=== PATIENT | male | born 1990 | race Hispanic/Latino ===

== ENCOUNTER 2018-03-11 13:05 | Observation (INO) ==
[2018-03-11] MEDS ORDERED: DICYCLOMINE HCL 10 MG/ML AMPUL IM ONE (14:13)
[2018-03-11 14:26] LABS: Hematocrit 48.4 % (42.0-52.0); Hemoglobin 16.7 gm/dL (13.5-18.0); Mean Cell Volume 87.7 fl (78-100); Mean Corpuscular Hemoglobin 30.3 pg (27-31); Mean Corpuscular Hgb Conc 34.5 g/dl (32-36); Mean Platelet Volume 10.5 fl (8-11.3); Neutrophil # 9.3 K/mm3 (1.3-6.0); Neutrophil % 80.3 % (42-75.0); Platelet Count 262 K/mm3 (150-450); Red Blood Count 5.52 M/mm3 (4.7-6.0); Red Cell Distribution Width 12.2 % (11.5-14.0); White Blood Count 11.6 K/mm3 (4.0-10.5)
[2018-03-11 14:40] LABS: ALT 50 U/L (19-67); AST 30 U/L (0-48); Albumin * 4.3 gm/dl (3.4-5.0); Alkaline Phosphatase * 77 U/L (50-170); BUN/Creatinine Ratio 13.2 (9.0-21.6); Bilirubin, Total 0.3 mg/dL (0.0-1.1); Blood Urea Nitrogen 12 mg/dL (6-23); Ca. Corrected For Albumin 9.1 mg/dL (8.4-10.2); Calcium * 9.7 mg/dL (7.9-10.9); Carbon Dioxide 28.1 mmol/L (24-32.6); Chloride 101 mmol/L (97-106); Glucose * 115 mg/dL (70-110); Lipase 654 U/L (73-393); Magnesium 1.9 mg/dL (1.2-2.8); Potassium 4.1 mmol/L (3.4-4.6); Sodium 140 mmol/L (132-142); Total Protein 8.7 gm/dL (6.2-8.2)
[2018-03-11] MEDS ORDERED: NORMAL SALINE 1,000 ML IV ONE (15:17)
[2018-03-11] MEDS ORDERED: MORPHINE SULFATE 4 MG/ML SYRG IV ONE ×2 (15:17→17:53)
[2018-03-11] MEDS ORDERED: ONDANSETRON HCL/PF 2 MG/ML VIAL IV ONE (15:17)
[2018-03-11] MEDS ORDERED: DIATRIZOATE MEGLUMINE, SODIUM 30 ML BTL PO ONE (15:18)
--- NOTE | 2018-03-11 17:49 | ERNOTE ---
Abdominal HPI - General Chief Complaint: Abdominal Pain Time Seen by Provider: 03/11/18 13:54 Source: patient, interpreter deaf Exam Limitations: no limitations - Immun/Allergies/Home Medications Allergies/Adverse Reactions: Allergies No Known Allergies Allergy (Unverified 03/11/18 13:45) Home Medications: HOME MEDICATIONS HYDROcodone/ACETAMINOPHEN [[place] 5-325] 1 ea PO Q4H #20 tab 03/11/18 [Last Taken Unknown] - History of Present Illness Narrative: Patient presents with epigastric abdominal pain. Patient appears to be at least moderate in severity and there has been some nausea with vomiting. Timing: constant Quality: moderate Activities at Onset: none Associated Symptoms: Present: nausea, vomiting Prior Abdominal Problems: Present: none Review of Systems - Review of Systems Constitutional: Present: See HPI EYE: Present: no symptoms reported ENT: Present: no symptoms reported Respiratory: Present: no symptoms reported Cardiology: Present: no symptoms reported Gastrointestinal/Abdominal: Present: See HPI, nausea, vomiting, abdominal pain Genitourinary: Present: no symptoms reported Musculoskeletal: Present: no symptoms reported Skin: Present: no symptoms reported Neurological: Present: no symptoms reported Endocrine: Present: no symptoms reported Hematologic/Lymphatic: Present: no symptoms reported Psych: Present: no symptoms reported Medical History (Last Updated 03/11/18 @ 13:45 by Shay Baker RN) No pertinent past medical history Surgical History: Surgical History (Last Updated 03/11/18 @ 13:45 by Sahy Baker RN) No pertinent past surgical history Social History: Preferred Language Hungarian Smoking Status Never smoker Alcohol Use occasionally Drug Use none No Social History Section defined Physical Exam - Physical Exam General Appearance: Present: wd/wn, alert, moderate distress Head Exam: Present: normal inspection, no evidence of injury Eye Exam: Normal inspection: bilateral, PERRL: bilateral Ears, Nose, Throat: Present: normal ENT inspection, H, normal pharynx Neck: Present: normal inspection, nontender Respiratory: Present: no respiratory distress, normal breath sounds, no accessory muscle use, chest nontender, lungs clear Cardiovascular/Chest: Present: regular rate, rhythm, no murmur, normal peripheral pulses Gastrointestinal/Abdominal: Present: normal bowel sounds, nondistended, soft, no organomegaly, tenderness Rectal Exam: Present: deferred Back Exam: Present: normal inspection, normal range of motion Extremity Exam: Present: normal inspection, non-tender, no edema, normal range of motion Neurological Exam: Present: alert, oriented, normal mood/affect Skin Exam: Present: normal color, warm/dry Lymphatic Exam: Present: no adenopathy Progress - Results and Orders Patient's Lab Results:: I have reviewed the patient's lab results. - Vital Signs Patient's Vital Signs:: I have reviewed the patient's vital signs. Vital Signs: Vital Signs 03/11/18 13:40 03/11/18 15:14 Temperature 36.8 C Pulse Rate 91 87 Respiratory Rate 14 16 Blood Pressure 144/76 H 145/80 H O2 Sat by Pulse Oximetry 97 99 - CT/Ultrasound CT/Ultrasound Narrative: CT the abdomen pelvis reviewed by me - Progress/Reassessment Chief Complaint: Abdominal Pain Progress:: Improved Plan - Plan Plan: By utilizing the global interpreter deaf I was able to ascertain whether the patient felt good enough to go home if we could send him home with pain medicine, and he stated yes. He was informed that he needed to refrain from any alcohol consumption, he needed to drink only clear liquids for the next 24 hours and preferably take at least several days off from work. He will come back if his pain does not resolve as anticipated. Departure Clinical Impression: Pancreatitis, acute Qualifiers: Pancreatitis type: other Acute pancreatitis complication: no infection or necrosis Qualified Code(s): K85.80 - Other acute pancreatitis without necrosis or infection - Departure Disposition: Home self-care Condition: Good Instructions: Acute Pancreatitis, [id number] Print Language: Hungarian Prescriptions: HYDROcodone/ACETAMINOPHEN [[place] 5-325] 1 ea PO Q4H #20 tab
[2018-03-11] MEDS ORDERED: HYDROmorphone HCL 1 MG/ML DISP.SYRIN IV PRN (20:39)
[2018-03-11] MEDS ORDERED: ACETAMINOPHEN 325 MG TABLET PO PRN (20:40)
--- NOTE | 2018-03-11 20:41 | HP ---
Chief Complaint - Chief Complaint Date of Service: 03/11/18 Time of Service: 20:26 Chief Complaint: abdominal pain History of Present Illness: Simeon Zuniga, is a 27-year-old male of descent, who was admitted on 03/11/2018 because of abdominal pain. His pain started early this morning, epigastric to right upper quadrant in location, 7-8/10, nonradiating, associated with nausea and vomiting. He said last night he was in a constitution party and drank 7 bottles of beer and ate barbecued chicken and steak. In the emergency room the patient had an elevated white blood cell count of 12 and lipase of 654. The abdominal CT scan showed acute pancreatitis. The patient was admitted for observation for pain control and IV fluids. The patient is not a good historian as he does not speak fluent [place]ian. Medical History (Last Reviewed 03/11/18 @ 22:02 by Margot Esposito RN) No pertinent past medical history Surgical History: Surgical History (Last Reviewed 03/11/18 @ 22:02 by Margot Esposito RN) No pertinent past surgical history Social History: Preferred Language Serbian Smoking Status Never smoker Alcohol Use occasionally Drug Use none No Social History Section defined Review Of Systems (GEN) - Review of Systems Generalized/Overall Review: Absent: Weakness, Chills, Fever EENTM: Absent: Blurred Vision Respiratory: Absent: Cough, Shortness of Breath Cardiac: Absent: Chest Pain, Edema, Palpitations Abdominal: Present: Nausea, Vomiting, Abdominal Pain, Diarrhea - x 1 Genitourinary: Absent: Urgency, Frequency Musculoskeletal: Absent: Joint Pain Allergies/Adverse Reactions: Allergies Allergy/AdvReac Type Severity Reaction Status Date / Time No Known Allergies Allergy Unverified 03/11/18 13:45 Home Medications: HOME MEDICATIONS HYDROcodone/ACETAMINOPHEN [[place] 5-325] 1 ea PO Q4H #20 tab 03/11/18 [Last Taken Unknown] Exam - Exam Vital Signs: Vital Signs - Last Taken Temp 37 C 03/11/18 18:06 Pulse 85 03/11/18 19:33 Resp 18 03/11/18 19:33 BP 122/85 03/11/18 19:33 Pulse Ox 99 03/11/18 19:33 Constitutional: Present: Alert, Oriented x3, Cooperative ENT Exam: Present: hearing grossly normal Eye Exam: bilateral eye: normal inspection, PERRL, EOMI Neck: Present: supple Respiratory: Present: normal breath sounds, No rales, No wheezing Cardiovascular/Chest: Present: regular rate, rhythm, no JVD, no murmur Abdomen: Present: nondistended, no hepatospenomegaly, tender - RUQ, firm, hypoactive Extremity: Present: no pedal edema, no calf tenderness Diagnostic Studies: Abnormal Lab Results 03/11/18 03/11/18 Range/Units 14:20 14:20 WBC 11.6 H (4.0-10.5) K/mm3 Immature Gran % (Auto) 0.60 H (0.001-0.429) % Immature Gran # (Auto) 0.07 H (0.000-0.0310) K/mm3 Neutrophils % 80.3 H (42-75.0) % Lymphocytes % 14.2 L (20-51) % Neutrophils # 9.3 H (1.3-6.0) K/mm3 Anion Gap 15.0 H (6.8-13.8) mmol/L Random Glucose 115 H (70-110) mg/dL Total Protein 8.7 H (6.2-8.2) gm/dL Lipase 654 H (73-393) U/L Laboratory Results WBC 11.6 K/mm3 (4.0-10.5) H 03/11/18 14:20 RBC 5.52 M/mm3 (4.7-6.0) 03/11/18 14:20 Hgb 16.7 gm/dL (13.5-18.0) 03/11/18 14:20 Hct 48.4 % (42.0-52.0) 03/11/18 14:20 MCV 87.7 fl (78-100) 03/11/18 14:20 MCH 30.3 pg (27-31) 03/11/18 14:20 MCHC 34.5 g/dl (32-36) 03/11/18 14:20 RDW 12.2 % (11.5-14.0) 03/11/18 14:20 Plt Count 262 K/mm3 (150-450) 03/11/18 14:20 MPV 10.5 fl (8-11.3) 03/11/18 14:20 Immature Gran % (Auto) 0.60 % (0.001-0.429) H 03/11/18 14:20 Immature Gran # (Auto) 0.07 K/mm3 (0.000-0.0310) H 03/11/18 14:20 Neutrophils % 80.3 % (42-75.0) H 03/11/18 14:20 Lymphocytes % 14.2 % (20-51) L 03/11/18 14:20 Monocytes % 4.4 % (0.0-9) 03/11/18 14:20 Eosinophils % 0.2 % (0.0-3.0) 03/11/18 14:20 Basophils % 0.3 % (0.0-1.0) 03/11/18 14:20 Nucleated RBC % 0.0 k/mm3 (0-1) 03/11/18 14:20 Neutrophils # 9.3 K/mm3 (1.3-6.0) H 03/11/18 14:20 Lymphocytes # 1.65 k/mm3 (1.5-3.5) 03/11/18 14:20 Monocytes # 0.5 k/mm3 (0.0-1.0) 03/11/18 14:20 Eosinophils # 0.0 k/mm3 (0.0-0.7) 03/11/18 14:20 Absolute Basophils 0.0 k/mm3 (0.0-0.1) 03/11/18 14:20 Sodium 140 mmol/L (132-142) 03/11/18 14:20 Plasma Sodium 140 mmol/L (130-142) 03/11/18 14:20 Potassium 4.1 mmol/L (3.4-4.6) 03/11/18 14:20 Chloride 101 mmol/L (97-106) 03/11/18 14:20 Carbon Dioxide 28.1 mmol/L (24-32.6) 03/11/18 14:20 Anion Gap 15.0 mmol/L (6.8-13.8) H 03/11/18 14:20 BUN 12 mg/dL (6-23) 03/11/18 14:20 Creatinine 0.91 mg/dL (0.4-1.4) 03/11/18 14:20 Est GFR (Non-Af Amer) 108 mL/min (60-130) 03/11/18 14:20 BUN/Creatinine Ratio 13.2 (9.0-21.6) 03/11/18 14:20 Random Glucose 115 mg/dL (70-110) H 03/11/18 14:20 Calcium 9.7 mg/dL (7.9-10.9) 03/11/18 14:20 Calcium Adj for Albumin 9.1 mg/dL (8.4-10.2) 03/11/18 14:20 Magnesium 1.9 mg/dL (1.2-2.8) 03/11/18 14:20 Total Bilirubin 0.3 mg/dL (0.0-1.1) 03/11/18 14:20 AST 30 U/L (0-48) 03/11/18 14:20 ALT 50 U/L (19-67) 03/11/18 14:20 Alkaline Phosphatase 77 U/L (50-170) 03/11/18 14:20 Total Protein 8.7 gm/dL (6.2-8.2) H 03/11/18 14:20 Albumin 4.3 gm/dl (3.4-5.0) 03/11/18 14:20 Lipase 654 U/L (73-393) H 03/11/18 14:20 Ethyl Alcohol Less than 3.0 mg/dL (0.0-10.0) 03/11/18 14:20 Assessment/Plan - Assessment/Plan (1) Abdominal pain Problem: Acute Qualifiers: Abdominal location: right upper quadrant Qualified Code(s): R10.11 - Right upper quadrant pain (2) Elevated lipase Problem: Acute (3) Pancreatitis, acute Assessment: elevated lipase, RUQ pain, N/V. likely alcohol induced. will get US of GB in the morning. Problem: Suspected Qualifiers: Pancreatitis type: other Acute pancreatitis complication: no infection or necrosis Qualified Code(s): K85.80 - Other acute pancreatitis without necrosis or infection (4) Leukocytosis Assessment: likely inflammatory. Problem: Acute
[2018-03-11] MEDS ORDERED: POTASSIUM CHLORIDE 10 MEQ in DEXTROSE 5%-0.5 NORMAL SALINE 995 ML IV SCH (20:45)
[2018-03-11] MEDS: DEXTROSE 5%-0.5 NORMAL SALINE 1,000 ML IV PRN (23:03)
[2018-03-12] MEDS: DEXTROSE 5%-0.5 NORMAL SALINE 1,000 ML IV PRN (07:06)
--- NOTE | 2018-03-12 09:18 | PN ---
Progess Note - Interim Date: 03/12/18 Time: 09:17 Narrative: 03/12/18 09:17 US of GB- no acute findings. await CBC, CMP, lipase. patient says DOMINGUEZ -06/06. 03/12/18 10:13
[2018-03-12 09:31] LABS: Hematocrit 44.3 % (42.0-52.0); Hemoglobin 14.9 gm/dL (13.5-18.0); Mean Cell Volume 89.1 fl (78-100); Mean Corpuscular Hgb Conc 33.6 g/dl (32-36); Mean Platelet Volume 10.4 fl (8-11.3); Neutrophil % 73.9 % (42-75.0); Platelet Count 223 K/mm3 (150-450); Red Blood Count 4.97 M/mm3 (4.7-6.0); Red Cell Distribution Width 12.5 % (11.5-14.0); White Blood Count 9.4 K/mm3 (4.0-10.5)
[2018-03-12 09:39] LABS: Albumin * 3.4 gm/dl (3.4-5.0); Anion Gap 11.8 mmol/L (6.8-13.8); BUN/Creatinine Ratio 11.2 (9.0-21.6); Bilirubin, Total 0.5 mg/dL (0.0-1.1); Carbon Dioxide 27.6 mmol/L (24-32.6); Potassium 3.4 mmol/L (3.4-4.6); Total Protein 7.2 gm/dL (6.2-8.2)
[2018-03-12 09:44] LABS: Ca. Corrected For Albumin 8.9 mg/dL (8.4-10.2); Calcium * 8.7 mg/dL (7.9-10.9)
--- NOTE | 2018-03-12 10:06 | DS ---
(1) Abdominal pain Problem: Acute Qualifiers: Abdominal location: right upper quadrant Qualified Code(s): R10.11 - Right upper quadrant pain (2) Elevated lipase Problem: Resolved (3) Pancreatitis, acute Problem: Acute Qualifiers: Pancreatitis type: alcohol induced Acute pancreatitis complication: no infection or necrosis Qualified Code(s): K85.20 - Alcohol induced acute pancreatitis without necrosis or infection (4) Leukocytosis Problem: Resolved Description of Stay: Simeon Zuniga, is a 27-year-old male of descent, who was admitted on 03/11/2018 because of abdominal pain. His pain started early on the morning of admission, epigastric to right upper quadrant in location, 7-8/10, nonradiating, associated with nausea and vomiting. He said last night he was in a alliance party and drank 7 bottles of beer and ate barbecued chicken and steak. In the emergency room the patient had an elevated white blood cell count of 12 and lipase of 654. The abdominal CT scan showed acute pancreatitis. The patient was admitted for observation for pain control and IV fluids. The patient is not a good historian as he does not speak fluent [place]ian. he was kept NPO and continue with IVF and IV pain medication PRN. His US of the GB showed no acute changes. He has significantly improved this morning and his lipase and WBC have normalized. We started him on clear liquids this morning and he tolerated it well. He will be discharged today. He can progress to low fat/low residue soft diet in the morning and gradually progress to regular diet as tolerated. Follow up with his PCP in 1 week. june follow up with me mercedes Krishna. He was adviced not to take alcohol. Procedures Performed: none Results and Findings: Lab Pending Results 03/11/18 14:20: WBC 11.6 H, RBC 5.52, Hgb 16.7, Hct 48.4, MCV 87.7, MCH 30.3, MCHC 34.5, RDW 12.2, Plt Count 262, MPV 10.5, Immature Gran % (Auto) 0.60 H, Immature Gran # (Auto) 0.07 H, Neutrophils % 80.3 H, Lymphocytes % 14.2 L, Monocytes % 4.4, Eosinophils % 0.2, Basophils % 0.3, Nucleated RBC % 0.0, Neutrophils # 9.3 H, Lymphocytes # 1.65, Monocytes # 0.5, Eosinophils # 0.0, Absolute Basophils 0.0 03/11/18 14:20: Sodium 140, Plasma Sodium 140, Potassium 4.1, Chloride 101, Carbon Dioxide 28.1, Anion Gap 15.0 H, BUN 12, Creatinine 0.91, Est GFR (Non-Af Amer) 108, BUN/Creatinine Ratio 13.2, Random Glucose 115 H, Calcium 9.7, Calcium Adj for Albumin 9.1, Magnesium 1.9, Total Bilirubin 0.3, AST 30, ALT 50, Alkaline Phosphatase 77, Total Protein 8.7 H, Albumin 4.3, Lipase 654 H, Ethyl Alcohol Less than 3.0 03/12/18 08:19: WBC 9.4, RBC 4.97, Hgb 14.9, Hct 44.3, MCV 89.1, MCH 30.0, MCHC 33.6, RDW 12.5, Plt Count 223, MPV 10.4, Immature Gran % (Auto) 0.40, Immature Gran # (Auto) 0.04 H, Neutrophils % 73.9, Lymphocytes % 19.3 L, Monocytes % 5.3, Eosinophils % 0.8, Basophils % 0.3, Nucleated RBC % 0.0, Neutrophils # 7.0 H, Lymphocytes # 1.82, Monocytes # 0.5, Eosinophils # 0.1, Absolute Basophils 0.0 03/12/18 08:19: Sodium 137, Plasma Sodium 137, Potassium 3.4, Chloride 101, Carbon Dioxide 27.6, Anion Gap 11.8, BUN 10, Creatinine 0.89, Est GFR (Non-Af Am er) 111, BUN/Creatinine Ratio 11.2, Random Glucose 111 H, Calcium 8.7, Calcium Adj for Albumin 8.9, Total Bilirubin 0.5, AST 18, ALT 32, Alkaline Phosphatase 69, Total Protein 7.2, Albumin 3.4, Lipase 316 Discharge Location: Home Disposition: Home self-care Condition: Good Discharge Activity: Activity as tolerated Discharge Diet: Low fat/chol, Other - stay on clear liquids for today and start low fat/low resdue soft diet in a.m amd progress to regular diet as tolerated Additional Patient Instructions (free text): follow up with his PCP in 1 week. Advice patient no alcohol intake. Prescriptions (Any new or edited meds): Acetaminophen [Tylenol] 650 mg PO Q6H PRN #20 tablet PRN Reason: Mild Pain (Pain Scale 1-3) Promethazine HCl 12.5 mg PO QID PRN #20 tablet PRN Reason: Nausea And Vomiting Complete Home Medications List: Complete Home Medication List: Acetaminophen [Tylenol] 650 mg PO Q6H PRN #20 tablet 03/12/18 Promethazine HCl 12.5 mg PO QID PRN #20 tablet 03/12/18
[2018-03-12 17:41] VITALS: BP 115/72
== END 2018-03-12 17:20 | disposition home or self-care (01) ==
LOC: MS 13:05 → ER 13:05 → MS 19:40
PROVIDERS: ADMIT Internal Medicine; ATTEND Internal Medicine
CPT/HCPCS: 36415; 74177; 76705; 80053; 80320; 83690; 83735; 85025; 96365; 96366; 96375; 99285; G0378; G0481; J2405